=== PATIENT | male | born 1970 | race Caucasian/White ===

== ENCOUNTER 2018-12-08 19:03 | Inpatient (IN) | payer BC ==
[~2018-12-08] VITALS: Ht 175.3 cm; Wt 150.1 kg
[2018-12-08 19:05] VITALS: BP_SYST 140
[2018-12-08] MEDS ORDERED: HAL5 PO (19:24)
[2018-12-08] MEDS ORDERED: BISA10SU61 RC (19:24)
[2018-12-08] MEDS ORDERED: DOCU-144 PO (19:24)
[2018-12-08] MEDS ORDERED: IPRA3AMP9 INH (19:24)
[2018-12-08] MEDS ORDERED: APIX2.5T PO (19:24)
[2018-12-08] MEDS ORDERED: LORA-259 PO (19:24)
[2018-12-08] MEDS ORDERED: AMI200 PO (19:24)
[2018-12-08] MEDS ORDERED: FLEETMO RC (19:24)
[2018-12-08] MEDS ORDERED: ACET325T53 PO (19:24)
[2018-12-08] MEDS ORDERED: NITROGLYCERIN 1 INCH (GM) OINT. TP ONE (19:30)
[2018-12-08] MEDS ORDERED: FUROSEMIDE 40 MG/4 ML VIAL IVP ONE (19:30)
[2018-12-08] MEDS ORDERED: MELA3TAB PO (19:32)
[2018-12-08] MEDS ORDERED: SENN-234 PO (19:32)
[2018-12-08] MEDS ORDERED: FAMO-132 PO (19:32)
[2018-12-08] MEDS ORDERED: MOM PO (19:32)
[2018-12-08] MEDS ORDERED: LACT10SO7 PO (19:32)
[2018-12-08] MEDS ORDERED: METO25TA6 PO (19:32)
[2018-12-08] MEDS ORDERED: ONDA4TAB5 PO (19:32)
[2018-12-08] MEDS ORDERED: HYDR-4272 PO (19:32)
[2018-12-08 19:38] LABS: BASOPHILS # (AUTO) 0.1 K/uL (0.0-0.2); BASOPHILS % (AUTO) 0.7 % (0.0-2.0); EOSINOPHILS # (AUTO) 0.1 K/uL (0.0-0.4); EOSINOPHILS % (AUTO) 0.9 % (0.0-4.0); HEMATOCRIT 34.3 % (36-54); HEMOGLOBIN 10.7 g/dL (14.0-18.0); LYMPHOCYTES # (AUTO) 0.7 K/uL (1.0-5.5); LYMPHOCYTES % (AUTO) 8.7 % (20.5-51.5); MEAN CORPUSCULAR HEMOGLOBIN 27 pg (27-31); MEAN CORPUSCULAR HGB CONC 31 % (32-36); MEAN CORPUSCULAR VOLUME 87 fL (79.0-98.0); MONOCYTES # (AUTO) 0.9 K/uL (0.0-1.0); MONOCYTES % (AUTO) 10.6 % (1.7-9.3); NEUTROPHILS # (AUTO) 6.4 K/uL (1.8-7.7); NEUTROPHILS % (AUTO) 79.1 % (40.0-70.0); PLATELET COUNT (AUTO) 134 K/uL (130-430); RED BLOOD CELL COUNT(AUTO) 3.95 MIL/uL (4.2-6.2); RED CELL DISTRIBUTION WIDTH 18.8 % (9.0-15.0); WHITE BLOOD COUNT (AUTO) 8.1 K/uL (4.8-10.8)
[2018-12-08 20:03] LABS: INR 1.4 (0.80-1.20)
[2018-12-08 20:07] LABS: CALCIUM 9.3 mg/dL (8.4-11.0); CREATININE 3.34 mg/dL (0.55-1.30); POTASSIUM 3.8 mmol/L (3.5-5.1)
[2018-12-08 20:11] LABS: PROTHROMBIN TIME 13.8 SECS (9.5-12.5)
[2018-12-08 20:12] LABS: ALBUMIN 3.1 g/dL (3.4-4.8); TOTAL BILIRUBIN 1.5 mg/dL (0.0-1.0)
[2018-12-08 21:40] VITALS: BP_SYST 107
[2018-12-08 21:41] VITALS: BP_SYST 107
[2018-12-09] VITALS: BP_SYST 100
[2018-12-09] MEDS ORDERED: HYDROcodone/ACETAMIN 5-325 MG TAB (NORCO/ VICODIN) PO PRN (00:30)
[2018-12-09] MEDS ORDERED: ALBUTEROL SULFATE 0.083% 2.5 MG/3 ML VIAL.NEB INH PRN (00:30)
[2018-12-09] MEDS ORDERED: HYDROcodone/ACETAMIN 10-325 MG TAB PO PRN (00:30)
[2018-12-09] MEDS ORDERED: ACETAMINOPHEN 325 MG TABLET PO PRN ×2 (00:30→00:45)
[2018-12-09] MEDS ORDERED: IPRATROPIUM/ALBUTEROL SULFATE 3 ML AMPUL.NEB (DUONEB) INH PRN (00:45)
[2018-12-09] MEDS ORDERED: DOCUSATE SODIUM 100 MG CAPSULE PO PRN (00:45)
[2018-12-09] MEDS ORDERED: MINERAL OIL 133 ML ENEMA RC PRN (00:45)
[2018-12-09] MEDS ORDERED: LORazepam 1 MG TABLET PO PRN (00:45)
[2018-12-09] MEDS ORDERED: BISACODYL 10 MG/SUPPOSITORY RC PRN (00:45)
[2018-12-09] MEDS ORDERED: MILK OF MAGNESIA 30 ML UDC PO PRN (00:45)
[2018-12-09 00:50] VITALS: BP_SYST 107
[2018-12-09] MEDS: NORMAL SALINE 5 ML DISP.SYRIN IVF SCH ×3 (05:38→21:02)
[2018-12-09 05:44] LABS: BASOPHILS % (AUTO) 0.6 % (0.0-2.0); EOSINOPHILS # (AUTO) 0.1 K/uL (0.0-0.4); EOSINOPHILS % (AUTO) 1.1 % (0.0-4.0); HEMATOCRIT 32.6 % (36-54); HEMOGLOBIN 10.4 g/dL (14.0-18.0); LYMPHOCYTES # (AUTO) 0.9 K/uL (1.0-5.5); MEAN CORPUSCULAR HEMOGLOBIN 27 pg (27-31); MEAN CORPUSCULAR HGB CONC 32 % (32-36); MEAN CORPUSCULAR VOLUME 86 fL (79.0-98.0); MONOCYTES # (AUTO) 1.1 K/uL (0.0-1.0); MONOCYTES % (AUTO) 14.7 % (1.7-9.3); NEUTROPHILS # (AUTO) 5.5 K/uL (1.8-7.7); NEUTROPHILS % (AUTO) 71.6 % (40.0-70.0); PLATELET COUNT (AUTO) 134 K/uL (130-430); WHITE BLOOD COUNT (AUTO) 7.7 K/uL (4.8-10.8)
[2018-12-09 06:58] LABS: POTASSIUM 3.7 mmol/L (3.5-5.1)
[2018-12-09 06:59] LABS: CALCIUM 9.6 mg/dL (8.4-11.0); CREATININE 3.35 mg/dL (0.55-1.30); TOTAL BILIRUBIN 1.4 mg/dL (0.0-1.0)
[2018-12-09 07:00] LABS: ALBUMIN 2.9 g/dL (3.4-4.8)
[2018-12-09 08:24] VITALS: BP_SYST 115
[2018-12-09] MEDS: METOPROLOL TARTRATE 25 MG TABLET PO SCH ×2 (08:30→20:58)
[2018-12-09] MEDS: AMIODARONE HCL 200 MG TABLET PO SCH (08:30)
[2018-12-09] MEDS: APIXABAN 2.5 MG TABLET PO SCH ×2 (08:31→20:52)
[2018-12-09] MEDS ORDERED: FAMOTIDINE 20 MG TABLET PO SCH (09:00)
[2018-12-09 11:14] VITALS: BP_SYST 118
[2018-12-09] MEDS ORDERED: HEPARIN SODIUM,PORCINE 5000 UNITS/ML VIAL IV ONE (12:30)
[2018-12-09 15:43] VITALS: BP_SYST 97
[2018-12-09] MEDS ORDERED: ONDANSETRON HCL 4 MG/2 ML VIAL IVP PRN (20:15)
[2018-12-09] MEDS ORDERED: HALOPERIDOL 5 MG TABLET (HALDOL) PO SCH (21:00)
[2018-12-10 01:01] VITALS: BP_SYST 109
[2018-12-10 08:07] VITALS: BP_SYST 109
[2018-12-10] MEDS: AMIODARONE HCL 200 MG TABLET PO SCH (08:57)
[2018-12-10] MEDS: APIXABAN 2.5 MG TABLET PO SCH (08:58)
[2018-12-10] MEDS: METOPROLOL TARTRATE 25 MG TABLET PO SCH (08:58)
[2018-12-10] MEDS ORDERED: FAMOTIDINE 20 MG TABLET PO SCH (09:00)
[2018-12-10] MEDS: NORMAL SALINE 5 ML DISP.SYRIN IVF SCH ×2 (09:05→14:08)
[2018-12-10 11:04] VITALS: BP_SYST 117
[2018-12-10 11:15] VITALS: BP_SYST 109
== END 2018-12-10 15:30 | DRG 308 ==
LOC: SED 19:03 → STU 21:09
PROVIDERS: ADMIT Internal Medicine; ATTEND Internal Medicine
PROC: 5A1D70Z Performance of Urinary Filtration, Intermittent, Less than 6 Hours Per Day (ICD-10-PCS; principal; 2018-12-09)
DX: I48.1 Persistent atrial fibrillation (principal); N18.6 End stage renal disease; I13.2 Hypertensive heart and chronic kidney disease with heart failure and with stage 5 chronic kidney disease, or end stage renal disease; Z68.42 Body mass index [BMI] 45.0-49.9, adult; R07.89 Other chest pain; I42.9 Cardiomyopathy, unspecified; I50.9 Heart failure, unspecified; F31.9 Bipolar disorder, unspecified; I25.10 Atherosclerotic heart disease of native coronary artery without angina pectoris; F41.9 Anxiety disorder, unspecified; E66.9 Obesity, unspecified; G47.33 Obstructive sleep apnea (adult) (pediatric); Z82.49 Family history of ischemic heart disease and other diseases of the circulatory system; Z99.2 Dependence on renal dialysis; Z85.47 Personal history of malignant neoplasm of testis; Z90.79 Acquired absence of other genital organ(s); Z92.21 Personal history of antineoplastic chemotherapy; Z79.899 Other long term (current) drug therapy; Z91.11 Patient's noncompliance with dietary regimen
CPT/HCPCS: 36415; 71045; 80053; 80061; 83880; 84484; 85025; 85610-TC; 87081; 90935; 93005; 93306; 94640; 94760; 96374; 97110-GP; 99285; G0378; J1644; J1940; J2405; J7030; J7620